=== PATIENT | male | born 1960 | race Caucasian/White ===

== ENCOUNTER 2018-10-26 08:31 | Inpatient (IN) | payer OTHER ==
[~2018-10-26] VITALS: Ht 185.4 cm; Wt 60.6 kg
[2018-10-26 08:33] VITALS: BP 120/83
[2018-10-26 08:57] LABS: BASO # 0.2 10*3/uL (0.0-0.1); EOS # 0.4 10*3/uL (0.0-0.4); EOS % 5.5 % (1.0-4.0); HEMATOCRIT 48.8 % (42.0-52.0); HEMOGLOBIN 16.4 g/dl (14.0-18.0); LYMPH # 2.3 10*3/uL (1.3-4.4); LYMPH % 30.8 % (27.0-41.0); MEAN CELL VOLUME 95.7 fl (80.0-94.0); MEAN CORPUSCULAR HGB 32.2 pg (27.0-31.0); MEAN CORPUSCULAR HGB CONC 33.6 g/dl (33.0-37.0); MEAN PLATELET VOLUME 10.5 fl (9.6-12.3); MONO # 0.6 10*3/uL (0.1-1.0); MONO % 7.4 % (3.0-9.0); PLATELET COUNT AUTOMATED 254 10*3/uL (130-400); RED CELL DISTRI WIDTH 12.7 % (0-14.5); WHITE BLOOD COUNT 7.5 10*3/uL (4.8-10.8)
[2018-10-26 09:19] LABS: ALBUMIN 3.4 gm/dl (3.1-4.5); ALKALINE PHOSPHATASE 80 U/L (45-117); BUN 10 mg/dl (7-24); CHLORIDE 109 mmol/L (98-107); CREATININE 0.74 mg/dL (0.70-1.30); POTASSIUM 4.4 mmol/L (3.5-5.1); SGOT/AST 23 IU/L (3-35); SGPT/ALT 26 U/L (12-78); SODIUM 140 mmol/L (136-145); TOTAL PROTEIN 7.3 gm/dL (6.4-8.2)
[2018-10-26 09:32] LABS: BILIRUBIN NEGATIVE (NEGATIVE); BLOOD NEGATIVE (NEGATIVE); CLARITY SL CLOUDY (CLEAR); COLOR YELLOW (YELLOW); GLUCOSE NEGATIVE (NEGATIVE); KETONE NEGATIVE (NEGATIVE); LEUKO ESTERASE NEGATIVE (NEGATIVE); NITRITE NEGATIVE (NEGATIVE); PH 5.5 (5.0-9.0); SPECIFIC GRAVITY 1.025 (1.005-1.030); UROBILINOGEN 0.2 E.U./dl (0.2-1.0)
[2018-10-26 09:42] LABS: EPITHELIAL CELLS 0-2; MUCOUS 2+; URINE AMPHETAMINES < 1000 (1000ng/ml); URINE BARBITURATES < 200 (200ng/ml); URINE BENZODIAZEPINES < 200 (200ng/ml); URINE CANNABINOIDS (THC) < 50 (50ng/ml); URINE COCAINE < 300 (300ng/ml); URINE METHADONE < 300 (300ng/ml); URINE OPIATES < 300 (300ng/ml)
[2018-10-26 09:43] LABS: URINE PHENCYCLIDINE < 25 (25ng/ml)
[2018-10-26 10:28] VITALS: BP 130/86
--- NOTE | 2018-10-26 10:28 | NUR ---
A 58, admitted to , under the services of DONTE Scruggs DO with a diagnosis of ALCOHOL ABUSE. Chief complaint is ALCOHOL ABUSE. Patient arrived via ambulatory from ER. Monitor applied. Initial assessment completed. Vital signs taken and recorded. DONTE SCRUGGS DO notified of admission to the unit. Orders received. See assessment for past medical history, medications and allergies. Patient and/or family oriented to unit. [facility] visitation policy reviewed. Clothing/patient valuable form completed. KALEY WICK A
--- NOTE | 2018-10-26 10:38 | NUR ---
MED REC UPDATED. PT STATES HE DOES NOT TAKE ANY MEDICATIONS AT THIS TIME.
[2018-10-26 12:00] VITALS: BP 133/75
--- NOTE | 2018-10-26 14:12 | NUR ---
SLEEPING, NO SXS OF DISTRESS NOTED. CALL LIGHT IN REACH. IVF GOING.
[2018-10-26 16:00] VITALS: BP 122/77
[2018-10-26 20:00] VITALS: BP 117/55
[2018-10-27] VITALS: BP 110/58
[2018-10-27 08:00] VITALS: BP 102/84; BP 152/56
--- NOTE | 2018-10-27 10:49 | NUR ---
SLEEPING. NO SXS OF DISTRESS NOTED. TV ON. GLASSES ON TABLE. CALL LIGHT IN REACH.
[2018-10-27 16:00] VITALS: BP 111/76
--- NOTE | 2018-10-27 16:53 | NUR ---
SITTING IN BED, WATCHING TV AND COLORING. NO COMPLAINTS VOICED. CALL LIGHT IN REACH.
[2018-10-27 20:00] VITALS: BP 116/70
[2018-10-28] VITALS: BP 113/80
--- NOTE | 2018-10-28 04:25 | NUR ---
24 HR chart check completed.
[2018-10-28 08:00] VITALS: BP 122/73
--- NOTE | 2018-10-28 12:55 | NUR ---
PT AWAKE AND LYING IN BED. NO S/S OF DISTRESS AT THIS TIME. HE DENIES THE NEED FOR ANY PRN MEDICATIONS AND STATES THAT HE IS FEELING WELL. WILL CONTINUE TO MONITOR.
--- NOTE | 2018-10-28 14:39 | NUR ---
PATIENT MEETS [facility]. PATIENT IS SCHEDULED TO GO TO [facility] FOR INPATIENT TREATMENT. HIS ADMISSION IS SCHEDULED FOR OCTOBER 29, 2018 AT 1:00PM. PATIENT REPORTS HIS FATHER WILL BE HERE TO PICK HIM UP AT 11:00AM ON OCTOBER 29, 2018. PATIENT AGREES TO HIS AFTERCARE PLAN. BRYANNA FELTON MS APPEALS SPECIALIST
[2018-10-28 16:00] VITALS: BP 114/77
[2018-10-28 20:00] VITALS: BP 96/65
--- NOTE | 2018-10-28 21:56 | NUR ---
PATIENT RESTING IN BED. DENIES NEEDS AT THIS TIME. BED IN LOWEST POSITION, CALL LIGHT IN REACH
[2018-10-29] VITALS: BP 106/64
--- NOTE | 2018-10-29 00:48 | NUR ---
24 HR chart check completed.
[2018-10-29 06:24] LABS: BASO # 0.1 10*3/uL (0.0-0.1); BASO % 1.8 % (0.0-1.0); EOS # 0.4 10*3/uL (0.0-0.4); EOS % 5.5 % (1.0-4.0); HEMATOCRIT 47.7 % (42.0-52.0); HEMOGLOBIN 15.2 g/dl (14.0-18.0); LYMPH # 2.4 10*3/uL (1.3-4.4); LYMPH % 33.9 % (27.0-41.0); MEAN CELL VOLUME 97.9 fl (80.0-94.0); MEAN CORPUSCULAR HGB 31.2 pg (27.0-31.0); MEAN CORPUSCULAR HGB CONC 31.9 g/dl (33.0-37.0); MEAN PLATELET VOLUME 11.2 fl (9.6-12.3); MONO # 0.7 10*3/uL (0.1-1.0); MONO % 10.1 % (3.0-9.0); NEUT # 3.4 10*3/uL (2.3-7.9); NEUT % 48.4 % (47.0-73.0); PLATELET COUNT AUTOMATED 202 10*3/uL (130-400); RED BLOOD COUNT 4.87 10*6/uL (4.50-5.90); RED CELL DISTRI WIDTH 12.6 % (0-14.5); WHITE BLOOD COUNT 7.1 10*3/uL (4.8-10.8)
[2018-10-29 06:48] LABS: CREATININE 0.77 mg/dL (0.70-1.30)
[2018-10-29 08:00] VITALS: BP 114/74
[2018-10-29] MEDS ORDERED: NATURE'S BLEND100 M2 PO (08:04)
[2018-10-29] MEDS ORDERED: THERA TABLET400 MCG PO (08:04)
[2018-10-29] MEDS ORDERED: DICYCLOMINE HCL20 MG PO (08:04)
[2018-10-29] MEDS ORDERED: ATARAX,VISTARIL50 MG PO (08:04)
[2018-10-29] MEDS ORDERED: NATURE'S BLEND F1 MG PO (08:04)
[2018-10-29] MEDS ORDERED: MOTRIN 600 MG E4 TAB PO (08:04)
[2018-10-29] MEDS ORDERED: METHOCARBAMOL750 M1 PO (08:04)
[2018-10-29] MEDS ORDERED: NICOTROL10 MG INH (08:41)
--- NOTE | 2018-10-29 09:13 | NUR ---
C/O HEADACHE 03/05. TYLENOL GIVEN AT THIS TIME. WILL CONT TO MONITOR. CALL LIGHT IN REACH.
--- NOTE | 2018-10-29 10:45 | NUR ---
PT DISCHARGED AT THIS TIME. IV REMOVED AND PRESSURE DRESSING APPLIED. VERBALIZED UNDERSTANDING OF DISCHARGE INSTRUCTIONS.
== END 2018-10-29 10:45 | disposition home or self-care (01) | DRG 897 ==
LOC: ED 08:31 → EDHOLD 10:08 → 4E 10:08
PROVIDERS: Student in an Organized Health Care Education/Training Program; ADMIT Emergency Medicine
DX: F10.239 Alcohol dependence with withdrawal, unspecified (principal); F41.9 Anxiety disorder, unspecified; D75.89 Other specified diseases of blood and blood-forming organs; Z82.49 Family history of ischemic heart disease and other diseases of the circulatory system; Z72.0 Tobacco use; Z71.6 Tobacco abuse counseling; Z83.3 Family history of diabetes mellitus